=== PATIENT | male | born 1970 | race Caucasian/White ===

== ENCOUNTER 2016-12-17 10:40 | Emergency (ER) | payer OTHER ==
[~2016-12-17] VITALS: Ht 172.7 cm; Wt 111.1 kg
[~2016-12-17 10:40] MED LIST: HYDROCODON-ACE1 EAC7 PO; INDOMETHACIN50 MG PO; LISINOPRIL40 MG PO; LORAZEPAM0.5 MG PO; OMEPRAZOLE20 M2 PO; OXYCODONE HCL5 MG PO; VITAMIN C1500 MG PO
[2016-12-17 11:05] LABS: HEMATOCRIT 46.3 % (38.0-50.0); MCH 33.1 PG (29.0-34.0); MCV 94.7 FL (86-99); MEAN PLAT.VOLUME 9.4 uM^3 (9.0-12.4); PLATELET COUNT 190 K/uL (156-360); RBC DIS.WIDTH-CV 11.9 % (11.8-14.6); RBC DIS.WIDTH-SD 41.5 % (39-53); RED BLOOD COUNT 4.89 M/uL (4.00-5.50); WHITE BLOOD COUNT 6.6 K/uL (4.1-10.2)
[2016-12-17 11:14] LABS: PROTHROMBIN TIME 10.1 (9.2-11.2)
[2016-12-17 11:17] LABS: CHLORIDE 106 mEq/L (99-109); SODIUM 140 mEq/L (136-147)
[2016-12-17 11:18] LABS: GLUCOSE 100 mg/dL (70-99)
[2016-12-17 11:20] LABS: ANION GAP 10 MEQ/L (2-14)
[2016-12-17 11:22] LABS: GFR ESTIMATE (CALCULATED) > 59 mL/min/
[2016-12-17 11:23] LABS: UREA NITROGEN (BUN) 9 mg/dL (9-23)
[2016-12-17 11:25] LABS: D-DIMER ELISA 0.43 mg/L FEU (< 0.57)
[2016-12-17 11:26] LABS: TROP-I INTERPRETATION NEGATIVE; TROPONIN-I < 0.01 ng/mL (0.0-0.30)
[2016-12-17 14:39] LABS: TROP-I INTERPRETATION NEGATIVE; TROPONIN-I < 0.01 ng/mL (0.0-0.30)
[2016-12-17] MEDS ORDERED: LISINOPRIL40 MG PO (15:00)
[2016-12-17 15:14] VITALS: BP 145/95
== END 2016-12-17 15:15 | disposition home or self-care (01) ==
LOC: EME 10:40
PROVIDERS: Emergency Medicine
DX: R07.89 Other chest pain (principal); F17.200 Nicotine dependence, unspecified, uncomplicated; Z71.6 Tobacco abuse counseling; R53.1 Weakness; R06.02 Shortness of breath; R05 Cough; I10 Essential (primary) hypertension; F10.20 Alcohol dependence, uncomplicated
CPT/HCPCS: 71010; 80048; 84484; 85027; 85379; 85610; 93005; 99281; 99285

== ENCOUNTER 2017-12-16 00:15 | Emergency (ER) | payer OTHER ==
[~2017-12-16] VITALS: Ht 177.8 cm; Wt 112.5 kg
[2017-12-16 02:22] VITALS: BP 105/82
== END 2017-12-16 02:42 | disposition home or self-care (01) ==
LOC: EME 00:15
PROC: 0HQFXZZ Repair Right Hand Skin, External Approach (ICD-10-PCS; principal; 2017-12-16)
PROC: 3E0234Z Introduction of Serum, Toxoid and Vaccine into Muscle, Percutaneous Approach (ICD-10-PCS; 2017-12-16)
DX: S61.411A Laceration without foreign body of right hand, initial encounter (principal); W10.9XXA Fall (on) (from) unspecified stairs and steps, initial encounter; F10.99 Alcohol use, unspecified with unspecified alcohol-induced disorder; Z23 Encounter for immunization; F17.200 Nicotine dependence, unspecified, uncomplicated
CPT/HCPCS: 99281; 99283